=== PATIENT | male | born 1960 | race Caucasian/White ===

== ENCOUNTER → 2016-10-17 | Outpatient (CLI) | payer MEDICARE ==
[~2016-10-17] MED LIST: BENADRYL 25MG C25 MG PO; CELEBREX 200MG200 MG PO; ELIQUIS 5 MG TAB5 MG PO; ESOMEPRAZOLE MA40 MG PO; LINZESS290 MCG PO; LYRICA300 MG PO; NORCO 7.5-3251 EACH PO; PERCOCET 10-321 EACH PO; PROVENTIL HFA 61 INH INH; SYMBICORT 160-1 INHA INH; VENTOLIN/PROVE0.5 ML INH; ZANAFLEX 4 MG TA4 MG PO
[2016-10-17 10:43] LABS: HEMOGLOBIN 15.2 gm/dl (14.0-17.5); RED BLOOD COUNT 4.92 M/UL (4.20-5.50); WHITE BLOOD COUNT 5.6 K/UL (4.5-11.0)
[2016-10-17 11:10] LABS: BUN/CREATININE RATIO 24 (0-10)
== END ==
LOC: OPSV2 09:52
PROVIDERS: Orthopaedic Surgery
DX: Z01.810 Encounter for preprocedural cardiovascular examination (principal); Z01.812 Encounter for preprocedural laboratory examination; M70.31 Other bursitis of elbow, right elbow
CPT/HCPCS: 36415; 80048; 85025; 93005

== ENCOUNTER → 2016-10-24 | Day surgery (SDC) | payer MEDICARE ==
[~2016-10-24] VITALS: Ht 185.4 cm; Wt 78.5 kg
== END | disposition home or self-care (01) ==
LOC: OR 05:37
PROVIDERS: Orthopaedic Surgery
PROC: 0MT30ZZ Resection of Right Elbow Bursa and Ligament, Open Approach (ICD-10-PCS; principal; 2016-10-24 08:15)
DX: M70.21 Olecranon bursitis, right elbow (principal); E78.5 Hyperlipidemia, unspecified; J44.9 Chronic obstructive pulmonary disease, unspecified; K21.9 Gastro-esophageal reflux disease without esophagitis; C90.00 Multiple myeloma not having achieved remission; M19.90 Unspecified osteoarthritis, unspecified site; G89.29 Other chronic pain; Z96.641 Presence of right artificial hip joint; Z94.84 Stem cells transplant status; Z98.52 Vasectomy status; Z79.01 Long term (current) use of anticoagulants; Z79.899 Other long term (current) drug therapy; Z87.01 Personal history of pneumonia (recurrent); G47.30 Sleep apnea, unspecified; Z86.718 Personal history of other venous thrombosis and embolism; Z87.19 Personal history of other diseases of the digestive system; Z79.891 Long term (current) use of opiate analgesic
CPT/HCPCS: J0690; J1885; J2250; J2795; J3010; J7030; J7120